=== PATIENT | female | born 2000 | race Two or more races ===

== ENCOUNTER 2018-03-16 20:02 | Emergency (ER) | payer OTHER ==
[~2018-03-16] VITALS: Ht 157.5 cm; Wt 54.4 kg
[~2018-03-16 20:02] MED LIST: HYDR-2761 PO; IBUP-1060 PO
[2018-03-16 20:34] VITALS: BP 114/69
[2018-03-16 20:50] LABS: BILIRUBIN,URINE NEGATIVE (NEG); COLOR,URINE YELLOW; NITRITE,URINE NEGATIVE (NEG); PROTEIN,URINE NEGATIVE (NEG-TRACE)
[2018-03-16 20:52] LABS: CLARITY,URINE CLEAR
[2018-03-16 20:57] LABS: BACTERIA,URINE MODERATE /HPF (0-FEW); RBC,URINE 0 /HPF (0-2); SQUAMOUS EPITHELIAL CELL,UR MANY /LPF
[2018-03-16 21:14] LABS: CALCIUM 9.5 mg/dL (8.5-10.1); CREATININE 0.6 mg/dL (0.6-1.0); GFR 128.8; POTASSIUM 3.7 mmol/L (3.5-5.1)
[2018-03-16 21:20] LABS: ALBUMIN 4.1 g/dL (3.4-5.0); ALBUMIN/GLOBULIN RATIO 1.2 (1.0-1.7); TOTAL BILIRUBIN 0.3 mg/dL (0.2-1.0); TOTAL PROTEIN 7.6 g/dL (6.4-8.2)
[2018-03-16 21:41] LABS: BASO % 0 % (0-3); EOS # 0.1 x10^3/uL (0.0-0.7); EOS % 1 % (0-3); LYMPH # 2.4 x10^3/uL (1.0-4.8); LYMPH % 30 % (24-48); MEAN CORPUSCULAR HEMOGLOBIN 31 pg (25-35); MEAN CORPUSCULAR HGB CONC 34 g/dL (31-37); MEAN CORPUSCULAR VOLUME 89 fL (79-100); MONO # 0.7 x10^3/uL (0.0-1.1); MONO % 9 % (0-9); NEUT # 4.8 x10^3uL (1.8-7.7); NEUT % 60 % (31-73); PLATELET COUNT 198 x10^3/uL (140-400); RED BLOOD COUNT 4.25 x10^6/uL (3.50-5.40); RED CELL DISTRIBUTION WIDTH 14.2 % (11.5-14.5)
--- NOTE | 2018-03-16 21:52 | RAD ---
Transvaginal ultrasound pelvis HISTORY: Left pelvic pain Sonographic examination of the pelvis was performed by transabdominal technique multiple static images were obtained. The endometrium appears normal measures 1.2 cm in thickness. The ovaries appear normal with normal blood flow. The right ovary measures 2.4 x 1.8 x 1.8 cm. The left ovary measures 3.4 x 2.4 x 2.4 cm. There is a trace of free fluid the pelvis. IMPRESSION: Negative examination. This interpretation assumes the patient is not . Electronically signed by: Jairo Hall III, MD (03/16/2018 9:48 PM) [id number]
[2018-03-16] MEDS ORDERED: TRAM50TA PO (22:40)
[2018-03-16] MEDS ORDERED: NAPR-683 PO (22:40)
--- NOTE | 2018-03-16 22:40 | PHYS DOC ---
Past Medical History Past Medical History: No Pertinent History Past Surgical History: No Surgical History Alcohol Use: None Drug Use: None Adult General Chief Complaint Chief Complaint: PELVIC PAIN HPI HPI Patient is a 17-year-old female who presents with complaint of 2 day history of left lower abdominal/adnexal pain. She describes pain as being a deep ache at times sharp and stabbing at other. She denies any urinary discomfort and has had no difficulty with urination. She also denies any hematuria. She rates the pain at a 7 out of 10. She states the pain is worsened with palpation. She denies any nausea, vomiting or diarrhea. Review of Systems Review of Systems Constitutional: Denies fever or chills [] Respiratory: Denies cough or shortness of breath [] Cardiovascular: No additional information not addressed in HPI [] GI: Complains of left lower abdominal pain without nausea, vomiting or diarrhea [] : Denies dysuria or hematuria [] All other systems were reviewed and found to be within normal limits, except as documented in this note. Allergies Allergies Allergies Coded Allergies Type Severity Reaction Last Updated Verified No Known Drug Allergies 06/12/14 No Physical Exam Physical Exam Constitutional: Well developed, well nourished, no acute distress, non-toxic appearance. [] HENT: Normocephalic, atraumatic, bilateral external ears normal, oropharynx moist, no oral exudates, nose normal. [] Eyes: PERRLA, EOMI, conjunctiva normal, no discharge. [] Neck: Normal range of motion, no tenderness, supple, no stridor. [] Cardiovascular:Heart rate regular rhythm, no murmur [] Lungs & Thorax: Bilateral breath sounds clear to auscultation [] Abdomen: Bowel sounds normal, soft, with mild left lower abdominal/adnexal tenderness. [] Skin: Warm, dry, no erythema, no rash. [] Extremities: No tenderness, no cyanosis, no clubbing, ROM intact, no edema. [] Neurologic: Alert and oriented X 3, normal motor function, normal sensory function, no focal deficits noted. [] Current Patient Data Vital Signs Vital Signs Date Time Temp Pulse Resp B/P (MAP) Pulse Ox O2 Delivery O2 Flow Rate FiO2 03/16/18 20:34 98.3 78 20 114/69 (84) 98 Room Air 98.3 Lab Values Laboratory Tests Test 03/16/18 20:05 03/16/18 20:39 03/16/18 20:55 03/16/18 21:25 Urine Collection Type Unknown Urine Color Yellow Urine Clarity Clear Urine pH 7.0 Urine Specific Reynolds 1.025 Urine Protein Negative mg/dL (NEG-TRACE) Urine Glucose (UA) Negative mg/dL (NEG) Urine Ketones (Stick) Negative mg/dL (NEG) Urine Blood Negative (NEG) Urine Nitrite Negative (NEG) Urine Bilirubin Negative (NEG) Urine Urobilinogen Dipstick 1.0 mg/dL (0.2 mg/dL) Urine Leukocyte Esterase Negative (NEG) Urine RBC 0 /HPF (0-2) Urine WBC 1-4 /HPF (0-4) Urine Squamous Epithelial Cells Many /LPF Urine Bacteria Moderate /HPF (0-FEW) Urine Mucus Mod /LPF POC Urine HCG, Qualitative Hcg negative (Negative) Sodium Level 139 mmol/L (136-145) Potassium Level 3.7 mmol/L (3.5-5.1) Chloride Level 104 mmol/L (98-107) Carbon Dioxide Level 28 mmol/L (21-32) Anion Gap 7 (6-14) Blood Urea Nitrogen 16 mg/dL (7-20) Creatinine 0.6 mg/dL (0.6-1.0) Estimated GFR (Cockcroft-Gault) 128.8 BUN/Creatinine Ratio 27 (6-20) H Glucose Level 111 mg/dL (70-99) H Calcium Level 9.5 mg/dL (8.5-10.1) Total Bilirubin 0.3 mg/dL (0.2-1.0) Aspartate Amino Transferase (AST) 12 U/L (15-37) L Alanine Aminotransferase (ALT) 19 U/L (14-59) Alkaline Phosphatase 77 U/L (46-116) Total Protein 7.6 g/dL (6.4-8.2) Albumin 4.1 g/dL (3.4-5.0) Albumin/Globulin Ratio 1.2 (1.0-1.7) White Blood Count 8.0 x10^3/uL (4.0-11.0) Red Blood Count 4.25 x10^6/uL (3.50-5.40) Hemoglobin 13.0 g/dL (12.0-15.5) Hematocrit 38.0 % (36.0-47.0) Mean Corpuscular Volume 89 fL (79-100) Mean Corpuscular Hemoglobin 31 pg (25-35) Mean Corpuscular Hemoglobin Concent 34 g/dL (31-37) Red Cell Distribution Width 14.2 % (11.5-14.5) Platelet Count 198 x10^3/uL (140-400) Neutrophils (%) (Auto) 60 % (31-73) Lymphocytes (%) (Auto) 30 % (24-48) Monocytes (%) (Auto) 9 % (0-9) Eosinophils (%) (Auto) 1 % (0-3) Basophils (%) (Auto) 0 % (0-3) Neutrophils # (Auto) 4.8 x10^3uL (1.8-7.7) Lymphocytes # (Auto) 2.4 x10^3/uL (1.0-4.8) Monocytes # (Auto) 0.7 x10^3/uL (0.0-1.1) Eosinophils # (Auto) 0.1 x10^3/uL (0.0-0.7) Basophils # (Auto) 0.0 x10^3/uL (0.0-0.2) Laboratory Tests 03/16/18 21:25 Laboratory Tests 03/16/18 20:55 EKG EKG [] Radiology/Procedures Radiology/Procedures [] Impressions: Ultrasound findings were discussed with behavioral health technician who indicates that there was free fluid in the pelvis and prominence around the left adnexal region that she reported was suspicious for a recent ruptured ovarian cyst Course & Med Decision Making Course & Med Decision Making Pertinent Labs and Imaging studies reviewed. (See chart for details) [] Dragon Disclaimer Dragon Disclaimer This electronic medical record was generated, in whole or in part, using a voice recognition dictation system. Departure Departure Impression: Primary Impression: Ruptured ovarian cyst Disposition: 01 HOME, SELF-CARE Condition: STABLE Referrals: NO PCP (PCP) Patient Instructions: Ovarian Cyst Scripts Naproxen (NAPROSYN) 500 Mg Tablet 1 TAB PO BID PRN for PAIN, #20 TAB Prov: DUTCH ESQUIVEL Jr. DO 03/16/18 Tramadol Hcl (TRAMADOL HCL) 50 Mg Tablet 50 MG PO Q6HRS PRN for PAIN, #15 TAB Prov: DUTCH ESQUIVEL Jr. DO 03/16/18 DUTCH ESQUIVEL Jr. DO Mar 16, 2018 22:40
== END 2018-03-16 22:43 | disposition home or self-care (01) ==
LOC: ER 20:02
DX: N83.292 Other ovarian cyst, left side (principal)
CPT/HCPCS: 36415; 76830; 80053; 81001; 81025; 85025; 87086; 99284-25

== ENCOUNTER 2018-09-22 19:14 | Emergency (ER) | payer OTHER ==
[~2018-09-22] VITALS: Ht 154.9 cm; Wt 54.4 kg
[~2018-09-22 19:14] MED LIST changes: +NAPR-683 PO; +TRAM50TA PO
[2018-09-22 20:05] VITALS: BP 115/69
--- NOTE | 2018-09-22 20:14 | PHYS DOC ---
Past Medical History Past Medical History: No Pertinent History (MAKAYLA PELLETIER APRN) Past Surgical History: No Surgical History (MAKAYLA PELLETIER APRN) Alcohol Use: None Drug Use: None (MAKAYLA PELLETIER APRN) Adult General Chief Complaint Chief Complaint: SORE THROAT HPI HPI Patient is a 18 year old female who presents with sore throat for the past 3 days. Patient reports she thinks she had a fever yesterday, reports she does flanagan ve 2 children, who have been sick with similar symptoms, one had fever, and she did drink from that child's cup of the day, reports shortly after that she started to have a sore throat and not feeling well. States she had taken some ibuprofen last night which made her feel better. Has not taken any medicines today. States she has not been vomiting, denies shortness of breath, denies cough. Denies body aches. Also reports since she's been sick she has had a sore on the side of her tongue that is bothering her, states no bleeding, states it has not changed at all in the past few days, denies additional lesions (MAKAYLA PELLETIER APRN) Review of Systems Review of Systems Constitutional: Denies fever or chills Does report she did have a fever yesterday, did not check it.[] Eyes: Denies change in visual acuity, redness, or eye pain [] HENT: Denies nasal congestion reports sore throat [] Respiratory: Denies cough or shortness of breath [] Cardiovascular: No additional information not addressed in HPI [] GI: Denies abdominal pain, nausea, vomiting, bloody stools or diarrhea [] : Denies dysuria or hematuria [] Musculoskeletal: Denies back pain or joint pain [] Integument: Denies rash or skin lesions [] Neurologic: Denies headache, focal weakness or sensory changes [] Endocrine: Denies polyuria or polydipsia [] All other systems were reviewed and found to be within normal limits, except as documented in this note. (MAKAYLA PELLETIER APRN) Allergies Allergies Allergies Coded Allergies Type Severity Reaction Last Updated Verified No Known Drug Allergies 06/12/14 No (MARIAN WHITLOCK DO) Physical Exam Physical Exam Constitutional: Well developed, well nourished, no acute distress, non-toxic appearance. [] HENT: Normocephalic, atraumatic, bilateral external ears normal, oropharynx moist, no oral exudates, nose normal. tonsils 1+ with erythema. no purulence noted. small 1mm papule to side of tongue [] Eyes: PERRLA, EOMI, conjunctiva normal, no discharge. [] Neck: Normal range of motion, no tenderness, supple, no stridor. [] Cardiovascular:Heart rate regular rhythm, no murmur [] Lungs & Thorax: Bilateral breath sounds clear to auscultation [] Abdomen: Bowel sounds normal, soft, no tenderness, no masses, no pulsatile masses. [] Skin: Warm, dry, no erythema, no rash. [] Back: No tenderness, no CVA tenderness. [] Extremities: No tenderness, no cyanosis, no clubbing, ROM intact, no edema. [] Neurologic: Alert and oriented X 3, normal motor function, normal sensory function, no focal deficits noted. [] Psychologic: Affect normal, judgement normal, mood normal. [] (MAKAYLA PELLETIER APRN) Current Patient Data Vital Signs Vital Signs Date Time Temp Pulse Resp B/P (MAP) Pulse Ox O2 Delivery O2 Flow Rate FiO2 09/22/18 20:05 98.3 84 16 115/69 (84) 99 Room Air 98.3 (MARIAN WHITLOCK DO) Lab Values Laboratory Tests Test 09/22/18 20:20 Group A Streptococcus Rapid Negative (NEGATIVE) (MARIAN WHITLOCK DO) EKG EKG [] (MAKAYLA PELLETIER APRN) Radiology/Procedures Radiology/Procedures [] (MAKAYLA PELLETIER APRN) Course & Med Decision Making Course & Med Decision Making Pertinent Labs and Imaging studies reviewed. (See chart for details) [Discussed negative Rapid Strep Discussed continued use of OTC sore throat medications Discussed hydration and rest Discussed season allergy medications Patient in agreement with plan of care without further questions or concerns Patient does report she was concerned over HPV infection in her throat, as she had oral sex with someone else who had HPV, and she has felt a lump in her throat for a few months, Reports the intercourse was after she had the discomfort. Denies any vaginal complaints. states she had been on the internet and had looked and was worried she maybe had cancer because of it, states she had been seen at [facility] for that complaint previously. Discussed importance of safer sex, discussed importance of routine PAP as she gets older. Discussed sexual transmission of STI's. ] (MAKAYLA PELLETIER APRN) Dragon Disclaimer Dragon Disclaimer This electronic medical record was generated, in whole or in part, using a voice recognition dictation system. (MAKAYLA PELLETIER APRN) Departure Departure Impression: Primary Impression: Sore throat Additional Impression: Seasonal allergic rhinitis Disposition: HOME, SELF-CARE Condition: GOOD Referrals: NO PCP (PCP) Patient Instructions: Allergic Rhinitis, Sore Throat, [id number] Additional Instructions: As we discussed, year struck ischemic negative. You likely have a viral illness, similar to which her children had. This should be better in 3-4 days, similar to his her children improved. He continued take ibuprofen or Tylenol as he did yesterday. He should also take an [id number] Claritin or Zyrtec which will help with your stuffy nose. This was the one pill per day. He could take this for several days Attending Signature Attending Signature I have reviewed the PA/MANAGER GRANT's note and plan of care. I was available for consultation as needed during the patient's visit in the emergency department. I agree with the clinical impression, plan, and disposition. (MARIAN WHITLOCK DO) Problem Qualifiers Additional Impression: Seasonal allergic rhinitis Allergic rhinitis trigger: pollen Qualified Codes: J30.1 - Allergic rhinitis due to pollen MAKAYLA PELLETIER APRN Sep 22, 2018 20:14 MARIAN WHITLOCK DO Sep 24, 2018 20:07
== END 2018-09-22 21:15 | disposition home or self-care (01) ==
LOC: ER 19:14
DX: J02.9 Acute pharyngitis, unspecified (principal); J30.1 Allergic rhinitis due to pollen
CPT/HCPCS: 87070; 87880; 99283